=== PATIENT | female | born 1960 | race Hispanic/Latino ===

== ENCOUNTER 2018-06-05 01:18 | Emergency (ER) | payer SELFPAY ==
[2018-06-05 01:42] LABS: Bacteria/HPF Rare-Few HPF (None Seen); Bilirubin Negative (Negative); Blood, Urine Trace (Negative); Clarity Clear (Clear); Glucose, Urine (Dipstick) Negative (Negative); Hyaline Casts/LPF NONE SEEN LPF (0-3 Hyaline); Leukocyte Trace (Negative); Nitrite Negative (Negative); Protein, Urine (Dipstick) Negative (Neg-Trace); RBC/HPF 0-3 HPF (0-3); Squamous Epithelial 0-3 HPF (0-3); Urobilinogen 0.2 mg/dL (0.2-1.0); WBC/HPF 0-3 HPF (0-3); pH, Urine 6.5 (5.0-9.0)
[2018-06-05] MEDS ORDERED: Meclizine HCl 25 MG TAB ONE (02:01)
== END 2018-06-05 02:16 | disposition home or self-care (01) ==
LOC: SCSER 01:18
DX: R42 Dizziness and giddiness (principal); K59.00 Constipation, unspecified; F32.9 Major depressive disorder, single episode, unspecified
CPT/HCPCS: 81003; 81015; 99284

== ENCOUNTER 2018-09-22 16:19 | Emergency (ER) | payer SELFPAY ==
--- NOTE | 2018-09-22 16:49 | RAD ---
LEFT ANKLE 3 VIEWS: HISTORY: Ankle pain FINDINGS: The ankle mortise is maintained. No acute fracture, dislocation or bony destruction is identified. Sm all calcaneal spur is seen.
== END 2018-09-22 16:55 | disposition home or self-care (01) ==
LOC: SCSER 16:19
DX: S93.402A Sprain of unspecified ligament of left ankle, initial encounter (principal); F32.9 Major depressive disorder, single episode, unspecified; X50.9XXA Other and unspecified overexertion or strenuous movements or postures, initial encounter